=== PATIENT | female | born 1985 | race Caucasian/White ===

== ENCOUNTER → 2018-02-26 | Outpatient (CLI) | payer BC ==
--- NOTE | 2018-02-26 16:37 | RADIOLOGY REPORT (SQ) ---
EXAM DESCRIPTION: CT ABD/PELVIS WITH IV ORAL COMPLETED DATE/TIME: 02/26/2018 3:18 pm REASON FOR STUDY: NONINFLAMMATORY DISORDER OF VAGINA, UNSPECIFIED N89.9 NONINFLAMMATORY DISORDER OF VAGINA, UNSPECIFIED COMPARISON: None. TECHNIQUE: CT scan of the abdomen and pelvis performed using helical scanning technique with dynamic intravenous contrast injection. Patient drank oral contrast. Images reviewed with lung, soft tissue , and bone windows. Reconstructed coronal and sagittal MPR images reviewed. Delayed images for evalua tion of the urinary system also acquired. All images stored on PACS. All CT scanners at this facility use dose modulation, iterative reconstruction, and/or weight based d osing when appropriate to reduce radiation dose to as low as reasonably achievable (ALARA). [facility]: Dose Right [facility]: CareDose [facility]: Dose Right [facility]: Teradose 4D [facility]: [employer] CONTRAST TYPE AND DOSE: contrast/concentration: Isovue 370.00 mg/ml; Total Contrast Delivered: 91.0 ml; Total Saline Delivered: 70.0 ml RENAL FUNCTION: Creatinine not required, patient less than 50 years old RADIATION DOSE: CT Rad equipment meets quality standard of care and radiation dose reduction techniq ues were employed. CTDIvol: 8.4 - 9.7 mGy. DLP: 964 mGy-cm.. LIMITATIONS: None. FINDINGS: A 3 x 2.7 x 2.7 cm avidly enhancing soft tissue mass is present in the upper 3rd of the va gabe posterolaterally. This is best shown on axial series 2, image 85/98 and coronal series 601, franck ge 57/97. Remainder of the female pelvis is otherwise unremarkable. Normal size uterus and ovaries. No enlarg ed obturator, iliac, or inguinal lymph nodes. No free pelvic fluid. Bladder, rectum are unremarkabl e. LOWER CHEST: No significant findings. No nodules or infiltrates. LIVER: Normal size. No masses. No dilated ducts. SPLEEN: Normal size. No focal lesions. PANCREAS: No masses. No significant calcifications. No adjacent inflammation or peripancreatic fluid collections. Pancreatic duct not dilated. GALLBLADDER: No identified stones by CT criteria. No inflammatory changes to suggest cholecystitis. ADRENAL GLANDS: No significant masses or asymmetry. RIGHT KIDNEY AND URETER: No solid masses. No significant calcifications. No hydronephrosis or hyd roureter. LEFT KIDNEY AND URETER: No solid masses. No significant calcifications. No hydronephrosis or hydr oureter. AORTA AND VESSELS: No aneurysm. No dissection. Renal arteries, SMA, celiac without stenosis. RETROPERITONEUM: No retroperitoneal adenopathy, hemorrhage or masses. BOWEL AND PERITONEAL CAVITY: Patient drank oral contrast. No bowel obstruction. No free intraperito paola air or fluid. APPENDIX: Normal. PELVIS: As above ABDOMINAL WALL: No masses. No hernias. BONES: No significant or acute findings. OTHER: No other significant finding. IMPRESSION: 3 x 2.7 x 2.7 cm solid enhancing mass in the upper 3rd of the vagina, with avid contrast enhancement. Finding is worrisome for tumor, differential includes squamous or adenocarcinoma, shakira noma, or sarcoma. Metastatic lesion from cervical cancer is possible. No adenopathy in the pelvis. No CT evidence of distant metastatic disease to the lung bases or remai nder of the abdomen/ pelvis in the field of view TECHNICAL DOCUMENTATION: JOB ID: [id number] Quality ID # [id number]: Final reports with documentation of one or more dose reduction techniques (e.g., Au tomated exposure control, adjustment of the mA and/or kV according to patient size, use of iterative reconstruction technique) 2010 [employer]- All Rights Reserved Reading location - IP/workstation name: [email or web address]
== END ==
LOC: RAD 14:54
PROVIDERS: ATTEND Obstetrics & Gynecology Gynecologic Oncology
DX: N89.9 Noninflammatory disorder of vagina, unspecified (principal); R10.2 Pelvic and perineal pain
CPT/HCPCS: 74177

== ENCOUNTER → 2018-03-02 | Outpatient (CLI) | payer BC ==
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
== END ==
LOC: RAD 07:33
PROVIDERS: ATTEND Obstetrics & Gynecology Gynecologic Oncology
DX: N89.9 Noninflammatory disorder of vagina, unspecified (principal)
CPT/HCPCS: 72197; A9576

== ENCOUNTER 2019-10-20 11:11 | Emergency (ER) | payer OTHER, BC ==
[2019-10-20] MEDS ORDERED: HYDROCODONE/ACETAMINOPHEN 5-325 MG TABLET PO ONE (11:58)
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
[2019-10-20 13:36] LABS: ABSOLUTE EOSINOPHILS # (AUTO) 0.2 10^3/uL (0.0-0.6); ABSOLUTE LYMPHOCYTES (AUTO) 2.2 10^3/uL (0.5-4.7); ABSOLUTE MONOCYTES (AUTO) 0.5 10^3/uL (0.1-1.4); BASOPHILS % (AUTO) 0.3 % (0-2); EOSINOPHILS % (AUTO) 2.4 % (0-6); HEMOGLOBIN 12.7 g/dL (12.0-15.5); LYMPHOCYTES % (AUTO) 24.7 % (13-45); MEAN CORPUSCULAR HEMOGLOBIN 36.1 pg (27.0-33.4); MEAN CORPUSCULAR HGB CONC 35.3 g/dL (32.0-36.0); MEAN CORPUSCULAR VOLUME 102 fl (80-97); MONOCYTES % (AUTO) 5.7 % (3-13); PLATELET COUNT 300 10^3/uL (150-450); RED BLOOD COUNT 3.52 10^6/uL (3.72-5.28); RED CELL DISTRIBUTION WIDTH 12.9 % (11.5-14.0); SEGMENTED NEUTROPHILS % (AUTO) 66.9 % (42-78); TOTAL CELLS COUNTED % (AUTO) 100 %
[2019-10-20 13:41] LABS: APPEARANCE,URINE SLIGHTLY-CLOUDY; BILIRUBIN,URINE NEGATIVE (NEGATIVE); COLOR,URINE YELLOW; GLUCOSE, URINE NEGATIVE (NEGATIVE); KETONES,URINE NEGATIVE (NEGATIVE); PROTEIN,URINE >=500 mg/dL (NEGATIVE); URINE SPECIFIC GRAVITY 1.022; UROBILINOGEN,URINE NEGATIVE mg/dL (<2.0)
[2019-10-20 13:55] LABS: ALBUMIN 3.8 g/dL (3.5-5.0); ALKALINE PHOSPHATASE 57 U/L (38-126); ANION GAP 8 (5-19); ASPARTATE AMINO TRANSFERASE 23 U/L (14-36); BILIRUBIN,DIRECT 0.2 mg/dL (0.0-0.4); BILIRUBIN,TOTAL 0.3 mg/dL (0.2-1.3); BLOOD UREA NITROGEN 12 mg/dL (7-20); CALCIUM 9.1 mg/dL (8.4-10.2); CARBON DIOXIDE 28 mmol/L (22-30); CHLORIDE 103 mmol/L (98-107); GLUCOSE 91 mg/dL (75-110); TOTAL PROTEIN 6.6 g/dL (6.3-8.2)
[2019-10-20] MEDS ORDERED: METHOCARBAMOL 750 MG TABLET PO ONE (15:20)
[2019-10-20] MEDS ORDERED: OXYCODONE-ACETAMINOPHEN 5-325 MG TABLET PO ONE (15:20)
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
[2019-10-20] MEDS ORDERED: HYDROMORPHONE HCL INJ/PF 2 MG/ML AMPULE IV ONE (16:19)
[2019-10-20] MEDS ORDERED: NORMAL SALINE 1000 ML 1,000 ML IV ONE (16:19)
[2019-10-20] MEDS ORDERED: ONDANSETRON HCL INJ/PF 4 MG/2 ML SDV IV ONE (16:19)
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
[2019-10-20 20:09] VITALS: BP 141/79
== END 2019-10-20 20:12 | disposition home or self-care (01) ==
LOC: ER 11:11
DX: S70.02XA Contusion of left hip, initial encounter (principal); S70.01XA Contusion of right hip, initial encounter; R51 Headache; M54.9 Dorsalgia, unspecified; M54.2 Cervicalgia; M79.641 Pain in right hand; M79.10 Myalgia, unspecified site; M25.50 Pain in unspecified joint; M25.40 Effusion, unspecified joint; R41.3 Other amnesia; V68.5XXA Driver of heavy transport vehicle injured in noncollision transport accident in traffic accident, initial encounter
CPT/HCPCS: 99284; 96361; 96374; 96375; 36415; 84703; 85025; 80053; 81001; 72050; 73130; 72070; 70450; 72125; 74176; J3490; J1170; J2405; J7030

== ENCOUNTER → 2020-09-12 | Outpatient (CLI) | payer BC ==
[2020-09-12 15:58] LABS: A TYPE INFLUENZA AG NEGATIVE (NEGATIVE); B INFLUENZA AG NEGATIVE (NEGATIVE)
[2020-09-13 09:36] VITALS: BP 121/76
--- NOTE | 2020-09-13 09:36 | ER RDC ASSESSMENT REPORT ---
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 [employer] - Symptoms Subjective Fever([place] feverish): Yes Chills: Yes Muscule Aches: Yes Runny Nose: Yes Sore Throat: Yes Cough (New or worsening chronic cough): No Shortness of breath: No Nausea or Vomiting: Yes Headache: No Abdominal Pain: No Diarrhea(3 or more loose stools in last 24 hours): Yes - Do you have any of the following Chronic lung disease: Asthma or emphysema or COPD: No Cystic Fibrosis: No Diabetes: No High Blood Pressure: No Cardiovascular Disease: No Chronic Kidney Disease: No Chronic Liver Disease: No Chronic blood disorder like Sickle Cell Disease: No Weak immune system due to disease or medication: No Neurologic condition that limits movement: No Developmental delay - Moderate to Severe: No Recent (within past 2 weeks) or current : Yes --If current: Trimester: 2nd Comment: Is 11 weeks gets care at [facility]. Morbid Obesity (>100 pounds over ideal weight): No Obesity Comment: Height 5 feet 7 inches weight 175 pounds - Objective Temperature: 97.7 F Pulse Rate: 76 Respiratory Rate: 18 Blood Pressure: 121/76 O2 Sat by Pulse Oximetry: 97 Objective: Given above, testing performed: If Testing Performed: Test Specimen Type Sent to General - General Information source: Patient Notes: Patient here at 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 Patient reports starting to feel sick for over a week denies any known positive exposure to Covid outside of patients in labor and delivery that have been Covid. Patient also reports wears her PPE according to policy. Patient symptoms include fever runny nose sore throat nausea and diarrhea. Patient's PCP is with [facility] patient plans to follow-up wi th both PCP and OB today. - Related Data Allergies/Adverse Reactions: No Known Allergies Allergy (Verified 10/20/19 11:53) Past Medical History - General Information source: Patient - Social History Smoking Status: Never Smoker Family History: None Physical Exam - General General appearance: Appears well, Alert In distress: None Notes: PHYSICAL EXAMINATION: GENERAL: Well-appearing and in no acute distress. HEAD: Atraumatic, normocephalic. EYES: sclera anicteric, conjunctiva are normal. ENT: nares patent. Moist mucous membranes. NECK: Normal range of motion, supple without lymphadenopathy LUNGS: CTAB and equal. No wheezes rales or rhonchi. Respirations even and unlabored lung sounds clear. HEART: Regular rate and rhythm without murmurs ABDOMEN: Soft, nontender, normal bowel sounds, no guarding. EXTREMITIES: Normal range of motion, no pitting edema. No cyanosis. NEUROLOGICAL: Cranial nerves grossly intact. Normal speech. Normal gait. PSYCH: Normal mood, normal affect. SKIN: Warm, Dry, normal turgor, no rashes or lesions noted Diagnostic Results Laboratory Results: 09/12/20 13:54 Throat Throat Culture - Preliminary Influenza A (Rapid) NEGATIVE (NEGATIVE) 09/12/20 13:53 Influenza B (Rapid) NEGATIVE (NEGATIVE) 09/12/20 13:53 Group A Strep Rapid NEGATIVE (NEGATIVE) 09/12/20 13:53 Ending strep culture. Pending Covid testing results. Patient provided instructions regarding Covid to include: As a person under investigation for Covid 19, the [place] department of Health and Human Services, division of public health advises you to adhere to the following guidance until your test results are reported to you. If your test result is positive, you will receive additional information from your provider and your local health department at that time. Remain at home until you are cleared by the health provider or public health authorities. Keep a log of visitors to your home, notify any visitors to your home of your isolation status. If you plan to move to a new address or leave the [facility], notify the local health department in your County. Call your doctor or seek care if you have an urgent medical need. Before seeking medical care, call ahead to get instructions from the provider before arriving at the medical office clinic or hospital. Notify them that you are being tested for the virus that causes Covid 19 so that arrangements can be made, as necessary, to prevent transmission to others in the healthcare setting. Next, notify the local health department in your county. If a medical emergency arises and you need to call 911, inform the first responders that you are being tested for the virus that causes Covid 19. Next, notify the local health department in your county. Patient Education/Counseling Counseling/Education: Patient presents with upper respiratory symptoms worrisome for possible Covid 19. Patient does not have emergency worring symptoms such as difficulty breathing, shortness of breath, chest pain, pressure, confusion or cyanosis. Patient appears suitable for discharge. Patient instructed to follow-up with her OB and PCP today. To ED for persistent or worsening symptoms. Patient's vital signs are stable and patient is nontoxic in appearance. Good return precautions have been discussed with patient, patient verbalized understanding and is agreeable with discharge plan of care at this time. RDC Discharge - Discharge Clinical Impression: Encounter for screening laboratory testing for COVID-19 virus, Flu-like sym ptoms Upper respiratory infection Qualifiers: URI type: unspecified URI Qualified Code(s): J06.9 - Acute upper respiratory infection, unspecified Condition: Stable Disposition: Home; Selfcare
== END ==
LOC: RDC 13:16
PROVIDERS: ATTEND Nurse Practitioner Family
DX: O99.511 Diseases of the respiratory system complicating pregnancy, first trimester (principal); O09.521 Supervision of elderly multigravida, first trimester; J06.9 Acute upper respiratory infection, unspecified; J02.9 Acute pharyngitis, unspecified; Z20.828 Contact with and (suspected) exposure to other viral communicable diseases; R50.9 Fever, unspecified; M79.10 Myalgia, unspecified site; R09.89 Other specified symptoms and signs involving the circulatory and respiratory systems; R11.0 Nausea; R19.7 Diarrhea, unspecified; Z3A.11 11 weeks gestation of pregnancy
CPT/HCPCS: 87070; 87880; 87804; 99201; 99211; U0003; C9803; 87635